=== PATIENT | female | born 2000 | race Caucasian/White ===

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

== ENCOUNTER → 2021-10-08 | Outpatient (CLI) | payer OTHER ==
[~2021-10-08] MED LIST changes: +NAPROSYN500 MG PO
[2021-10-08 17:39] LABS: BASO # 0.1 10*3/uL (0.0-0.1); BASO % 0.6 % (0.0-1.0); EOS % 0.1 % (1.0-4.0); HEMATOCRIT 38.2 % (37.0-47.0); LYMPH # 2.8 10*3/uL (1.3-4.4); LYMPH % 27.9 % (27.0-41.0); MEAN CORPUSCULAR HGB 33.3 pg (27.0-31.0); MEAN CORPUSCULAR HGB CONC 36.1 g/dl (33.0-37.0); MEAN PLATELET VOLUME 10.1 fl (9.6-12.3); MONO # 0.5 10*3/uL (0.1-1.0); MONO % 5.3 % (3.0-9.0); NEUT # 6.5 10*3/uL (2.3-7.9); NEUT % 65.8 % (47.0-73.0); PLATELET COUNT AUTOMATED 324 10*3/uL (130-400); RED BLOOD COUNT 4.15 10*6/uL (4.10-5.10); RED CELL DISTRI WIDTH 12.5 % (0-14.5); WHITE BLOOD COUNT 9.9 10*3/uL (4.8-10.8)
[2021-10-08 17:58] LABS: ALKALINE PHOSPHATASE 54 U/L (45-117); BUN 7 mg/dl (7-24); CHLORIDE 107 mmol/L (98-107); CHOLESTEROL 137 mg/dL (<200); CREATININE 0.76 mg/dL (0.55-1.02); LDL CHOLESTEROL 71 mg/dL (9-159); SGOT/AST 7 IU/L (3-35); SGPT/ALT 15 U/L (12-78); SODIUM 139 mmol/L (136-145); TOTAL PROTEIN 8.3 gm/dL (6.4-8.2); TRIGLYCERIDES 67 mg/dl (<150); URIC ACID 5.3 mg/dL (2.6-6.0)
[2021-10-09 12:08] LABS: RHEUMATOID FACTOR <10.0 IU/mL (<14.0)
[2021-10-09 15:07] LABS: ANTI-SMOOTH MUSCLE ANTIBODY 4 Units (0-19)
== END | disposition home or self-care (01) ==
LOC: LAB 17:10
PROVIDERS: ATTEND Pediatrics
DX: M25.562 Pain in left knee (principal); M25.561 Pain in right knee; E55.9 Vitamin D deficiency, unspecified; D64.9 Anemia, unspecified

== ENCOUNTER → 2021-10-26 | Outpatient (CLI) | payer OTHER | END | disposition home or self-care (01) | LOC: RAD 11:40 | PROVIDERS: ATTEND Pediatrics | DX: M54.50 Low back pain, unspecified (principal) ==

== ENCOUNTER 2024-11-05 13:39 | Emergency (ER) | payer OTHER ==
[~2024-11-05] VITALS: Ht 157.4 cm; Wt 52.2 kg
[2024-11-05] MEDS ORDERED: Ondansetron Hydrochloride 4 MG/2 ML VIAL IV ONE (14:50)
[2024-11-05] MEDS ORDERED: SODIUM CHLORIDE 0.9% 1,000 ML IV ONE (14:50)
[2024-11-05] MEDS ORDERED: HYDROmorphONE Hydrochloride 0.5 MG/0.5 ML SYRINGE IV ONE (14:50)
[2024-11-05 15:43] LABS: MANUAL DIFF REFLEX YES; MEAN CELL VOLUME 89.5 fl (81.0-99.0); MEAN CORPUSCULAR HGB 30.5 pg (27.0-31.0); MEAN CORPUSCULAR HGB CONC 34.1 g/dl (33.0-37.0); MEAN PLATELET VOLUME 10.4 fl (9.6-12.3); PLATELET COUNT AUTOMATED 336 10*3/uL (130-400); RED CELL DISTRI WIDTH 14.6 % (0-14.5); WHITE BLOOD COUNT 13.8 10*3/uL (4.8-10.8)
[2024-11-05 15:43] LABS: BILIRUBIN Negative (Negative); BLOOD 2+ (Negative); CLARITY Cloudy (Clear); COLOR Dark Yellow (Yellow); GLUCOSE Negative (Negative); KETONE 4+ (Negative); LEUKO ESTERASE 1+ (Negative); NITRITE Negative (Negative); SPECIFIC GRAVITY >= 1.030 (1.001-1.030)
[2024-11-05 15:58] LABS: BACTERIA 1+; FINE GRANULAR CAST 0-2; MUCOUS 2+; WBC 16-20 wbc/hpf (0-5)
[2024-11-05 16:06] LABS: ALKALINE PHOSPHATASE 60 U/L (46-116); BUN 9 mg/dl (9-23); CHLORIDE 104 mmol/L (98-107); LIPASE 31 U/L (12-53); POTASSIUM 3.4 mmol/L (3.4-5.1); SGPT/ALT 7 U/L (5-49); TOTAL PROTEIN 7.5 gm/dL (6.0-8.0)
[2024-11-05 16:07] LABS: BETA-HCG, QUANT < 3.0 mIU/mL (3-10)
[2024-11-05 16:23] LABS: PLATELET SUFFICIENCY NORMAL (NORMAL); ROULEAUX SLIGHT; TOTAL CELLS COUNTED 100 #CELLS
[2024-11-05] MEDS ORDERED: cefTRIAXone Sodium 1 GM/10 ML SYR IV ONE (16:30)
[2024-11-05] MEDS ORDERED: SEPTDS PO (17:48)
== END 2024-11-05 17:50 | disposition home or self-care (01) ==
LOC: ED 13:39
PROVIDERS: Nurse Practitioner Family
DX: N39.0 Urinary tract infection, site not specified (principal); N93.8 Other specified abnormal uterine and vaginal bleeding; R10.84 Generalized abdominal pain; Z91.040 Latex allergy status; Z79.899 Other long term (current) drug therapy

== ENCOUNTER 2024-12-20 09:59 | Emergency (ER) | payer OTHER ==
[~2024-12-20] VITALS: Ht 157.4 cm; Wt 48.1 kg
[~2024-12-20 09:59] MED LIST changes: +SEPTDS PO
[2024-12-20] MEDS ORDERED: MEDROL DOSEPAK4 MG PO (10:36)
== END 2024-12-20 10:43 | disposition home or self-care (01) ==
LOC: ED 09:59
DX: B34.9 Viral infection, unspecified (principal); Z79.899 Other long term (current) drug therapy; Z91.040 Latex allergy status

== ENCOUNTER 2025-02-02 15:01 | Emergency (ER) | payer OTHER ==
[~2025-02-02] VITALS: Ht 152.4 cm; Wt 49.9 kg
[~2025-02-02 15:01] MED LIST changes: +MEDROL DOSEPAK4 MG PO
[2025-02-02] MEDS ORDERED: Acetaminophen/Oxycodone 5 MG/325 MG TABLET PO ONE (15:20)
[2025-02-02] MEDS ORDERED: MELOXICAM15 MG PO (16:20)
== END 2025-02-02 16:24 | disposition home or self-care (01) ==
LOC: ED 15:01
DX: S01.01XA Laceration without foreign body of scalp, initial encounter (principal); R42 Dizziness and giddiness; Z91.040 Latex allergy status; Z79.899 Other long term (current) drug therapy; V27.49XA Other motorcycle driver injured in collision with fixed or stationary object in traffic accident, initial encounter; Y93.55 Activity, bike riding; Y92.488 Other paved roadways as the place of occurrence of the external cause; Y99.8 Other external cause status

== ENCOUNTER 2025-02-09 11:29 | Emergency (ER) | payer OTHER ==
[~2025-02-09] VITALS: Ht 157.4 cm; Wt 49.9 kg
[~2025-02-09 11:29] MED LIST changes: +MELOXICAM15 MG PO
== END 2025-02-09 11:53 | disposition home or self-care (01) ==
LOC: ED 11:29
DX: S01.01XD Laceration without foreign body of scalp, subsequent encounter (principal); Z48.02 Encounter for removal of sutures; Z91.040 Latex allergy status; W22.8XXD Striking against or struck by other objects, subsequent encounter